=== PATIENT | female | born 1965 | race Caucasian/White ===

== ENCOUNTER 2017-02-21 05:41 | Emergency (ER) | payer OTHER ==
[~2017-02-21] VITALS: Ht 162.6 cm; Wt 87.1 kg
[2017-02-21] MEDS ORDERED: AMLODIPINE-BEN1 EAC1 PO (05:52)
--- NOTE | 2017-02-21 05:57 | ED GI/GU/ABDOMINAL COMPLAINT ---
History of Present Illness General Chief Complaint: Abdominal Pain/Flank Pain Stated Complaint: ?KIDNEY STONE Source: patient, old records Exam Limitations: no limitations Vital Signs & Intake/Output Vital Signs & Intake/Output Vital Signs Date Time Temp Pulse Resp B/P Pulse O2 O2 Flow FiO2 Ox Delivery Rate 02/21 0840 97.6 80 16 133/74 100 Room Air 02/21 0604 100 Room Air 02/21 0555 96.5 93 18 168/89 100 Room Air Allergies Coded Allergies: NO KNOWN ALLERGIES (01/31/12) Reconcile Medications Amlodipine Besylate/Benazepril (Amlodipine-Benazepril 5-40 MG) 5 MG-40 MG CAPSULE 40 MG PO DAILY HTN (Reported) Triage Note: PT TO ED C/O L LOWER FLANK/BACK PAIN. 07/08 SHARP SHOOTING PAIN THAT STARTED YESTERDAY AM. PT HAS HAD A HX OF KIDNEY STONES 1 YEAR AGO, PT STATES SHE BELIEVES THIS IS WHAT IS CAUSING THE PAIN. Triage Nurses Notes Reviewed? yes LMP (ages 10-50): unknown ? n Is pt currently ? No Onset: yesterday Duration: day(s):, changing over time, continues in ED, waxing and waning Timing: recent history Quality/Severity: aching, sharpness, severe Location: left flank Radiation: LLQ Activities at Onset: none Prior Abdominal Problems: similar symptoms Past Sexual History: Unobtainable at this time No Modifying Factors: none Associated Symptoms: abdominal pain, lower back pain HPI: 1 day prior to admission patient awoke with left flank pain radiating to the left lower quadrant moderate to severe sharp waxing and waning lasting 3 hours with residual discomfort. Similar to previous kidney stone pain. Prior to admission she awoke with recurrent pain this time severe. She denies fever chills nausea vomiting diarrhea pain cough shortness of breath headache dysuria rash bleeding. (PATRIA PARR MD) Past History Travel History Traveled to [place] past 21 day No Medical History Any Pertinent Medical History? see below for history Cardiovascular: hypertension Surgical History Surgical History: non-contributory Psychosocial History What is your primary language Macedonian Tobacco Use: Never used Family History Hx Contributory? No (PATRIA PARR MD) Review of Systems Review of Systems Constitutional: Reports: no symptoms. EENTM: Reports: no symptoms. Respiratory: Reports: no symptoms. Cardiovascular: Reports: no symptoms. GI: Reports: see HPI, abdominal pain. Genitourinary: Reports: see HPI, pain. Musculoskeletal: Reports: no symptoms. Skin: Reports: no symptoms. Neurological/Psychological: Reports: no symptoms. Hematologic/Endocrine: Reports: no symptoms. Immunologic/Allergic: Reports: no symptoms. All Other Systems: Reviewed and Negative (PATRIA PARR MD) Physical Exam Physical Exam General Appearance: well developed/nourished, alert, awake, anxious, severe distress, obese Head: atraumatic, normal appearance Eyes: Bilateral: normal appearance, PERRL, EOMI, normal inspection. Ears, Nose, Throat, Mouth: hearing grossly normal, moist mucous membrane Neck: normal inspection, supple, full range of motion, normal alignment Respiratory: normal breath sounds, chest non-tender, no respiratory distress, quiet respiration, lungs clear Cardiovascular: regular rate/rhythm, normal peripheral pulses, norml femoral pulses equa Peripheral Pulses: 4+ carotid (R), 4+ carotid (L) Gastrointestinal: normal bowel sounds, soft, non-tender, no organomegaly Back: normal inspection, normal range of motion, no vertebral tenderness Extremities: normal range of motion, no ligament instability Neurologic/Psych: no motor/sensory deficits, awake, alert, oriented x 3, normal gait, normal mood/affect Skin: intact, normal color, warm/dry Core Measures ACS in differential dx? No Severe Sepsis Present: No Septic Shock Present: No (PATRIA PARR MD) Progress Differential Diagnosis: biliary colic, gastritis, kidney stone, UTI/pyelo Plan of Care: Orders Procedure Date/time Status Add-on Test (ER Only) 02/21 06 Active URINE 02/21 0557 Complete URINALYSIS 02/21 0553 Complete COMPREHENSIVE METABOLIC PANEL 02/21 05 Complete CBC WITHOUT DIFFERENTIAL 02/21 05 Complete Laboratory Tests 02/21/17 0557: Urine Color YEL, Urine Clarity CLDY H, Urine pH 6.0, Ur Specific [place] >= 1.030, Urine Protein 30 H, Urine Ketones NEG, Urine Nitrite NEG, Urine Bilirubin NEG, Urine Urobilinogen 0.2, Ur Leukocyte Esterase NEG, Ur Microscopic SEDIMENT EXAMINED, Urine RBC 15-25 H, Urine WBC 3-5 H, Ur Epithelial Cells MANY H, Urine Bacteria MOD H, Urine Hemoglobin MOD H, Urine Glucose NEG, Urine Test NEGATIVE 02/21/17 0555: Anion Gap 11, Estimated GFR > 60, BUN/Creatinine Ratio 15.7, Glucose 122 H, Calcium 9.3, Total Bilirubin 0.4, AST 12 L, ALT 26, Alkaline Phosphatase 60, Total Protein 7.1, Albumin 4.0, Globulin 3.1, Albumin/Globulin Ratio 1.3, CBC w Diff NO MAN DIFF REQ, RBC 4.85, MCV 78.5 L, MCH 25.3 L, RDW 16.2 H, MPV 8.9, Gran % 60.9, Lymphocytes % 22.4, Monocytes % 13.3 H, Eosinophils % 2.6, Basophils % 0.8, Absolute Granulocytes 2.6, Absolute Lymphocytes 0.9 L, Absolute Monocytes 0.6, Absolute Eosinophils 0.1, Absolute Basophils 0, PUBS MCHC 32.2 L Initial ED EKG: none Hand-Off Endorsed To: RADHA BOO,CATHERINE Whitman Endorsed Time: 705 Pending: CT, other (improved pain level) (KESHAV BOO,PATRIA) Diagnostic Imaging: Viewed by Me: CT Scan. Discussed w/RAD: CT Scan. Radiology Impression: PATIENT: GIULIANO SYED PRESENT AGE: 51 PATIENT ACCOUNT NO: [id number] : 67 LOCATION: [facility] ORDERING PHYSICIAN: PATRIA PARR MD SERVICE DATE: 02/21/17 EXAM TYPE: CAT - CT ABD & PELVIS W/O IV CONTRAS EXAMINATION: CT ABDOMEN AND PELVIS WITHOUT CONTRAST CLINICAL INFORMATION: Left flank pain COMPARISON: CT abdomen and pelvis with IV contrast 05/09/2013. TECHNIQUE: Multidetector volumetric imaging was performed from the superior aspect of the liver through the pubic symphysis. Sagittal and coronal reformatted images were obtained on the technologist's workstation. No oral or intravenous contrast. DLP: 736 mGy-cm FINDINGS: LUNG BASES: There is a smooth nodule at the left posterior lateral base overlying the diaphragmatic pleura and measuring 6 x 7 x 13 mm. This represents change from prior study. There is no infiltrate or effusion. LIVER, GALLBLADDER, AND BILIARY TREE: The liver is normal in size and smooth in contour. There is mild hepatic steatosis. No focal hepatic parenchymal lesion or intrahepatic biliary ductal dilatation. The gallbladder is unremarkable with no evidence of radiopaque gallstones, gallbladder wall thickening, or obvious pericholecystic inflammatory changes. PANCREAS: Unremarkable. SPLEEN: Unremarkable. ADRENAL GLANDS: Unremarkable. KIDNEYS AND URETERS: The right kidney is unremarkable. There is no hydronephrosis, hydroureter, perinephric stranding, or visible calculi. There is mild to moderate left hydronephrosis and prominent extrarenal pelvis with mild stranding adjacent to the renal sinus. The ureteropelvic junction/proximal ureter appears mildly compressed by a chronic left periaortic mass below the level of the renal vessels measuring 3.1 x 4.0 x 3.[address] 2013 2.3 x 2.9 x 3.3 cm. BLADDER: There is a 3 mm calculus at the left posterior bladder base, likely recently passed. GASTROINTESTINAL TRACT: Hiatal hernia are present measuring 5.6 x 7.4 x [address] measurement 3 cm. There is no bowel obstruction or inflammatory changes in the bowel. The appendix is normal. No ascites. No focal fluid collection. ABDOMINAL WALL: Small stable fat- containing umbilical hernia. LYMPH NODES: Left infrarenal periaortic mass slightly increased in size since 2013. Otherwise, no retroperitoneal, deep pelvic, or inguinal lymphadenopathy. VASCULAR: Unremarkable. PELVIC VISCERA: Unremarkable. OSSEOUS STRUCTURES: Unremarkable. IMPRESSION: 1. Mild to moderate left hydronephrosis with mild perinephric stranding. A 3 mm calculus is seen at posterior left bladder base, likely recently passed. 2. Chronic left periaortic retroperitoneal mass slightly increased in size since prior CT 2013 and mildly compressing left proximal ureter. Current measurements 3.1 x 4.0 x 3.9 cm. 3. Pleural-based nodule left lung average dimension 8.[address] chest as an outpatient to further assess remainder of the lungs. 4. Hiatal hernia 6 x 8 cm. DICTATED BY: KENNETH MANUEL MD DATE/TIME DICTATED:02/21/17822 STATION INSTALLER AND REPAIRER:SHERIF DATE/TIME TRANSCRIBED:02/21/17822 CONFIDENTIAL, DO NOT COPY WITHOUT APPROPRIATE AUTHORIZATION. <Electronically signed in Other Vendor System> SIGNED BY: KENNETH MANUEL MD 02/21/17 0852 Comments: Patient is feeling much better. CAT scan results have been discussed with the patient. Patient states she knows about the retroperitoneal mass and followed at the cancer center for over a year and it did not change in size so they have been just watching it. Patient will follow-up with her doctor regarding the CAT scan. Patient feels comfortable going home. (RADHA BOO,CATHERINE Whitman) Departure Departure Condition: Stable Clinical Impression Primary Impression: Renal colic on left side Referrals: OPAL BOO,BETTYE Garcia (PCP/Family) Departure Forms: Customer Survey General Discharge Information (KESHAV BOO,PATRIA) Departure Disposition: HOME OR SELF CARE Additional Instructions: FOLLOW UP WITH YOUR DOCTOR ABOUT YOUR CT SCAN RETURN IF SYMPTOMS COME BACK OR FOR ANY CONCERNS (RADHA BOO,CATHERINE Whitman)
[2017-02-21 06:03] LABS: ABSOLUTE BASOPHIL COUNT 0 /CUMM (0.0-0.2); ABSOLUTE EOSINOPHIL COUNT 0.1 /CUMM (0.0-0.7); ABSOLUTE GRANULOCYTE CT 2.6 /CUMM (1.4-6.5); ABSOLUTE LYMPH COUNT 0.9 /CUMM (1.2-3.4); ABSOLUTE MONOCYTE COUNT 0.6 /CUMM (0.10-0.60); BASOPHIL % 0.8 % (0.0-2.0); EOSINOPHIL % 2.6 % (0-5); GRANULOCYTE % 60.9 % (42.2-75.2); HEMATOCRIT 38.1 % (37-47); MEAN CORPUSCULAR HGB 25.3 PG (27.0-31.0); MEAN CORPUSCULAR HGB CONC 32.2 G/DL (33.0-37.0); MEAN CORPUSCULAR VOLUME 78.5 FL (81.0-99.0); MEAN PLATELET VOLUME 8.9 FL (7.4-10.4); PLATELET COUNT 220 /CUMM (130-400); RBC DISTRIBUTION WIDTH 16.2 % (11.5-14.5); RED BLOOD CELL CT 4.85 /CUMM (4.20-5.40); WHITE BLOOD CELL COUNT 4.2 /CUMM (4.8-10.8)
[2017-02-21 08:40] VITALS: BP 133/74
--- NOTE | 2017-02-21 08:52 | CT SCAN REPORT ---
EXAMINATION: CT ABDOMEN AND PELVIS WITHOUT CONTRAST CLINICAL INFORMATION: Left flank pain COMPARISON: CT abdomen and pelvis with IV contrast 05/09/2013. TECHNIQUE: Multidetector volumetric imaging was performed from the superior aspect of the liver through the pubic symphysis. Sagittal and coronal reformatted images were obtained on the technologist's workstation. No oral or intravenous contrast. DLP: 736 mGy-cm FINDINGS: LUNG BASES: There is a smooth nodule at the left posterior lateral base overlying the diaphragmatic pleura and measuring 6 x 7 x 13 mm. This represents change from prior study. There is no infiltrate or effusion. LIVER, GALLBLADDER, AND BILIARY TREE: The liver is normal in size and smooth in contour. There is mild hepatic steatosis. No focal hepatic parenchymal lesion or intrahepatic biliary ductal dilatation. The gallbladder is unremarkable with no evidence of radiopaque gallstones, gallbladder wall thickening, or obvious pericholecystic inflammatory changes. PANCREAS: Unremarkable. SPLEEN: Unremarkable. ADRENAL GLANDS: Unremarkable. KIDNEYS AND URETERS: The right kidney is unremarkable. There is no hydronephrosis, hydroureter, perinephric stranding, or visible calculi. There is mild to moderate left hydronephrosis and prominent extrarenal pelvis with mild stranding adjacent to the renal sinus. The ureteropelvic junction/proximal ureter appears mildly compressed by a chronic left periaortic mass below the level of the renal vessels measuring 3.1 x 4.0 x 3.[address] 2013 2.3 x 2.9 x 3.3 cm. BLADDER: There is a 3 mm calculus at the left posterior bladder base, likely recently passed. GASTROINTESTINAL TRACT: Hiatal hernia are present measuring 5.6 x 7.4 x 7.[address] measurement 3 cm. There is no bowel obstruction or inflammatory changes in the bowel. The appendix is normal. No ascites. No focal fluid collection. ABDOMINAL WALL: Small stable fat-containing umbilical hernia. LYMPH NODES: Left infrarenal periaortic mass slightly increased in size since 2013. Otherwise, no retroperitoneal, deep pelvic, or inguinal lymphadenopathy. VASCULAR: Unremarkable. PELVIC VISCERA: Unremarkable. OSSEOUS STRUCTURES: Unremarkable. IMPRESSION: 1. Mild to moderate left hydronephrosis with mild perinephric stranding. A 3 mm calculus is seen at posterior left bladder base, likely recently passed. 2. Chronic left periaortic retroperitoneal mass slightly increased in size since prior CT 2012 and mildly compressing left proximal ureter. Current measurements 3.1 x 4.0 x 3.9 cm. 3. Pleural-based nodule left lung average dimension 8.[address] chest as an outpatient to further assess remainder of the lungs. 4. Hiatal hernia 6 x 8 cm.
== END 2017-02-21 09:14 ==
LOC: ERH 05:41
PROVIDERS: Emergency Medicine
DX: N23 Unspecified renal colic (principal)
CPT/HCPCS: 74176; 81001; 81025; 96361; 96365; 96375; J1885